=== PATIENT | female | born 1975 | race Hispanic/Latino ===

== ENCOUNTER 2021-07-06 13:12 | Emergency (ER) | payer SELFPAY ==
[2021-07-06 14:51] LABS: Amphetamine Screen,Urine Negative; Benzodiazepines Screen,Urine Negative; Cannabinoid Screen,Urine Negative; Cocaine Screen,Urine Negative; Methadone Screen,Urine Negative; Opiate Screen,Urine Negative
[2021-07-06 16:09] LABS: Bilirubin,Urine NEG (Negative); Color,Urine Yellow (Yellow)
[2021-07-06 16:10] LABS: Blood,Urine NEG (Negative); Protein,Urine <15 mg/dL mg/dL (Negative); Urobilinogen,Urine < 2.0 mg/dL (<2.0)
[2021-07-06] MEDS ORDERED: SODIUM CHLORIDE 0.9% 1000 ML 1,000 ML IV ONE (16:10)
--- NOTE | 2021-07-06 16:13 | Emergency Department Report ---
ED Psych HPI - General Chief Complaint: Psych Stated Complaint: BS IN 400'S/ NEED MED CLEARANCE Time Seen by Provider: 07/06/21 16:00 Source: patient Mode of arrival: Ambulatory - History of Present Illness Initial Comments: Patient is here from [place] due to suicidal thoughts, homicidal thoughts, and "being all over the place. She states she just does not feel well. They had reported that her sugars were elevated. She states that she is diabetic and is on insulin. She denies chest pain or shortness of breath. Has no back pain. There is been no vomiting or diarrhea. She has not had any infectious symptoms. There is no dysuria or frequency. She does report polyuria, but she believes that is related to her elevated blood sugar. There is no unusual rash. ED Review of Systems ROS: Stated complaint: BS IN 400'S/ NEED MED CLEARANCE Other details as noted in HPI Comment: All other systems reviewed and negative Constitutional: denies: fever Eyes: denies: vision change ENT: denies: throat pain Respiratory: denies: cough Cardiovascular: denies: chest pain Endocrine: increased thirst, increased urine Gastrointestinal: denies: abdominal pain Genitourinary: denies: dysuria Musculoskeletal: denies: back pain Skin: denies: rash Neurological: denies: paresthesias Psychiatric: suicidal thoughts Hematological/Lymphatic: denies: easy bruising ED Past Medical Hx - Past Medical History Previous Medical History?: Yes Hx Diabetes: Yes (Type) Hx Psychiatric Treatment: Yes Additional medical history: DVT, thyroid problems, scoliosis, pancreatitis - Surgical History Past Surgical History?: Yes Additional Surgical History: back surgery - Family History Family history: diabetes - Social History Smoking Status: Unknown if ever smoked ED Physical Exam - General Limitations: No Limitations General appearance: alert, in no apparent distress - Head Head exam: Present: atraumatic, normocephalic - Eye Eye exam: Present: normal appearance, EOMI - ENT ENT exam: Present: mucous membranes dry - Neck Neck exam: Present: full ROM. Absent: meningismus - Respiratory Respiratory exam: Present: normal lung sounds bilaterally, respiratory distress - Cardiovascular Cardiovascular Exam: Present: regular rate, normal rhythm - GI/Abdominal GI/Abdominal exam: Present: soft. Absent: tenderness - Extremities Exam Extremities exam: Present: normal capillary refill - Back Exam Back exam: Absent: CVA tenderness (R), CVA tenderness (L) - Neurological Exam Neurological exam: Present: alert, oriented X3 - Psychiatric Psychiatric exam: Present: depressed, suicidal ideation - Skin Skin exam: Present: warm, dry ED Course Vital Signs 07/06/21 07/06/21 15:36 15:38 Temperature 97.7 F Pulse Rate 90 Respiratory 20 Rate Blood Pressure 125/85 [Left] O2 Sat by Pulse 97 97 Oximetry - Reevaluation(s) Reevaluation #1: 07/06/21 16:25 -Labs have been ordered. All records reviewed. Reevaluation #2: 07/06/21 18:39 Case was discussed with behavioral health. They are planning on admitting the patient. We will complete a coronavirus swab. 1013 has been completed. We will maintain the patient's blood sugar with insulin and IV fluids. Another provider will have to arrange disposition while psychiatric services attempt placement. ED Medical Decision Making - Lab Data Result diagrams: 07/06/21 16:30 07/06/21 16:30 - Medical Decision Making Patient presents with suicidal ideation. She is medically cleared although her sugar needs to be controlled. She does not appear to be septic or toxic. Patient has no other metabolic derangement. Hyperglycemia should not preclude psychiatric admission. The only reason this patient is not being accepted is due to her blood sugar. We will continue with medication and management. Psychiatric services will attempt placement. She does not seem to be delusional. She is not responding to extraneous stimuli. There is no evidence of acute psychosis or infectious process. Critical Care Time: No Critical care attestation.: If time is entered above; I have spent that time in minutes in the direct care of this critically ill patient, excluding procedure time. ED Disposition Clinical Impression: Suicidal ideation, Hyperglycemia due to type 1 diabetes mellitus Disposition: 30 STILL A PATIENT Is pt being admited?: No Does the pt Need Aspirin: No Condition: Stable Instructions: Diabetes Mellitus Type 2 in Adults (ED)
[2021-07-06 16:47] LABS: Basophils # (Auto) 0.2 K/mm3 (0.0-0.1); Basophils % (Auto) 2.9 % (0.0-1.8); Eosinophils # (Auto) 0.1 K/mm3 (0.0-0.4); Eosinophils % (Auto) 1.8 % (0.0-4.3); Hematocrit 35.8 % (30.3-42.9); Hemoglobin 12.1 gm/dl (10.1-14.3); Lymphocytes # (Auto) 2.3 K/mm3 (1.2-5.4); Lymphocytes % (Auto) 38.1 % (13.4-35.0); Mean Corpuscular HGB Conc 34 % (30-34); Mean Corpuscular Volume 93 fl (79-97); Monocytes # (Auto) 0.4 K/mm3 (0.0-0.8); Platelet Count 472 K/mm3 (140-440); Red Blood Count 3.83 M/mm3 (3.65-5.03); Red Cell Distribution Width 13.7 % (13.2-15.2)
[2021-07-06 17:19] LABS: Blood Urea Nitrogen 15 mg/dL (7-17); Hemolysis Index 4
[2021-07-06 17:23] LABS: BUN/Creatinine Ratio 38
[2021-07-06] MEDS ORDERED: INSULIN REGULAR, HUMAN 100 UNITS/1 ML IV ONE (18:40)
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
[2021-07-07] MEDS ORDERED: DEXTROSE 50% IN WATER (25GM) 50 ML SYRINGE IV PRN (10:45)
--- NOTE | 2021-07-07 10:45 | Event Note ---
Date: 07/07/21 Patient is 46 years old female with history of bipolar disorder. Patient presented to the emergency room yesterday for suicidal and homicidal ideation. No overnight issues except for elevated blood glucose. Vital signs stable Labs reviewed and is unremarkable except for elevated blood glucose. Hyperglycemia. Patient treated with insulin. Blood glucose at 5:00 this morning was 57. Recheck blood glucose result more than 300. I started the patient on sliding scale insulin. Patient has been seen by our psychiatric team and commended inpatient psychiatric admission.
[2021-07-07] MEDS: INSULIN REGULAR, HUMAN 100 UNITS/1 ML SUB-Q SCH ×3 (11:32→16:41)
[2021-07-07] MEDS: QUEtiapine 25 MG TAB PO SCH ×3 (12:25→23:08)
[2021-07-08 10:12] LABS: Blood Urea Nitrogen 17 mg/dL (7-17); Calcium 9.3 mg/dL (8.4-10.2); Hemolysis Index 8
[2021-07-08] MEDS ORDERED: INSULIN REGULAR, HUMAN 100 UNITS/1 ML SUB-Q ONE ×2 (10:16→15:35)
[2021-07-08 10:29] LABS: BUN/Creatinine Ratio 43
--- NOTE | 2021-07-08 10:32 | Event Note ---
Date: 07/08/21 Patient remained calm. Patient blood glucose is more than 500. Patient started yesterday on a sliding scale however blood sugar is not controlled. Vital signs stable. Labs reviewed and showed elevated blood glucose however anion gap is 14. I ordered a 10 units of regular insulin. I will continue to monitor blood glucose. Waiting for inpatient psychiatric admission.
--- NOTE | 2021-07-08 11:05 | Progress Note ---
Subjective - Reason for Consult Consult date: 07/08/21 Reason for consult: SI - Chief Complaint Chief complaint: Per ED Note: "Patient remained calm. Patient blood glucose is more than 500. Patient started yesterday on a sliding scale however blood sugar is not controlled. Vital signs stable Labs reviewed and showed elevated blood glucose however anion gap is 14. I ordered a 10 units of regular insulin. I will continue to monitor blood glucose." The patient was seen this morning resting quietly. She reports doing well. The patient reports sleep and appetite as good. She denies suicidal/homicidal ideation and denies hallucinations. REVIEW OF SYSTEMS Constitutional: Negative for weight loss ENT: Negative for stridor Respiratory: Negative for cough or hemoptysis All other systems reviewed and are negative MENTAL STATUS EXAMINATION General Appearance and Behavior: Age appropriate, good hygiene, wearing appropriate clothes. Cooperation: Cooperative Psychomotor Behavior: Psychomotor normal Mood:Depressed Affect and affective range: Congruent with stated mood Thought Process: Goal Directed Thought Content: Not Suicidal Speech: Normal volume, Regular rate and rhythm, Suicidal Ideation: Denies Homicidal Ideation: Denies Hallucinations: Denies Delusions:Denies Impulse Control: Unimpaired Insight and Judgment: Limited, poor judgment Memory: Normal Attention:Distractible Orientation: alert and oriented Assessment and Plan (1) Bipolar disorder, current episode depressed Current Visit: Yes Status: Acute Start Seroquel 25mg po BID Start Seroquel 50mg po QHS The patient to comply with previously prescribed medications Risks, benefits and alternatives of medications discussed with the patient, questions answered and consent obtained from patient. PSYCHOTHERAPY: Supportive psychotherapy provided MEDICAL: Per primary team DELIRIUM PRECAUTIONS: Please re-orient patient frequently, keep lights on during the day, and minimize benzodiazepines and opiates as these medications could worsen patient's confusion. 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 FOLLOW-UP: Will follow. Case staffed with Dr. Pretty Please contact with any questions and/or concerns. Thank you for the consult. Mental Status Exam - Vital signs Last Vital Signs Temp 97.9 F 07/08/21 02:16 Pulse 83 07/08/21 02:16 Resp 16 07/08/21 02:16 BP 103/66 07/08/21 02:16 Pulse Ox 97 07/08/21 02:16
[2021-07-08] MEDS: INSULIN REGULAR, HUMAN 100 UNITS/1 ML SUB-Q SCH (12:17)
[2021-07-08] MEDS: QUEtiapine 25 MG TAB PO SCH ×3 (12:18→23:02)
[2021-07-08] MEDS: metFORMIN 500 MG TAB PO SCH ×3 (14:07→23:01)
[2021-07-08] MEDS ORDERED: INSULIN GLARGINE 100 UNITS/ML SUB-Q SCH (22:00)
[2021-07-09] MEDS: INSULIN REGULAR, HUMAN 100 UNITS/1 ML SUB-Q SCH ×2 (07:53→11:23)
--- NOTE | 2021-07-09 09:11 | Progress Note ---
Subjective - Reason for Consult Consult date: 07/09/21 Reason for consult: SI - Chief Complaint Chief complaint: The patient was seen this morning this morning. She reports that depression is improving. The patient reports sleep and appetite as good. She denies suicidal/homicidal ideation and denies hallucinations. REVIEW OF SYSTEMS Constitutional: Negative for weight loss ENT: Negative for stridor Respiratory: Negative for cough or hemoptysis All other systems reviewed and are negative MENTAL STATUS EXAMINATION General Appearance and Behavior: Age appropriate, good hygiene, wearing appropriate clothes. Cooperation: Cooperative Psychomotor Behavior: Psychomotor normal Mood:Depressed Affect and affective range: Congruent with stated mood Thought Process: Goal Directed Thought Content: Not Suicidal Speech: Normal volume, Regular rate and rhythm, Suicidal Ideation: Denies Homicidal Ideation: Denies Hallucinations: Denies Delusions:Denies Impulse Control: Unimpaired Insight and Judgment: Limited, poor judgment Memory: Normal Attention:Distractible Orientation: alert and oriented Assessment and Plan (1) Bipolar disorder, current episode depressed Current Visit: Yes Status: Acute Start Seroquel 25mg po BID Start Seroquel 50mg po QHS The patient to comply with previously prescribed medications Risks, benefits and alternatives of medications discussed with the patient, questions answered and consent obtained from patient. PSYCHOTHERAPY: Supportive psychotherapy provided MEDICAL: Per primary team DELIRIUM PRECAUTIONS: Please re-orient patient frequently, keep lights on during the day, and minimize benzodiazepines and opiates as these medications could worsen patient's confusion. 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 FOLLOW-UP: Will follow. Case staffed with Dr. Pretty Please contact with any questions and/or concerns. Thank you for the consult. Mental Status Exam - Vital signs Last Vital Signs Temp 98.0 F 07/09/21 02:25 Pulse 80 07/09/21 02:25 Resp 16 07/09/21 02:25 BP 108/65 07/09/21 02:25 Pulse Ox 97 07/09/21 02:25
[2021-07-09 09:16] VITALS: BP 102/58
[2021-07-09] MEDS: QUEtiapine 25 MG TAB PO SCH (09:38)
[2021-07-09] MEDS: metFORMIN 500 MG TAB PO SCH (09:38)
== END 2021-07-09 11:55 | disposition still patient (30) ==
LOC: ED 13:12
DX: E11.65 Type 2 diabetes mellitus with hyperglycemia (principal); R45.851 Suicidal ideations; Z20.822 Contact with and (suspected) exposure to COVID-19; Z88.0 Allergy status to penicillin; Z98.890 Other specified postprocedural states
CPT/HCPCS: 36415; 80048; 80307; 81001; 82962; 85025; 96361; 96372; 96374; 99284; J7030; U0003; 80320; G0480; J1815